=== PATIENT | male | born 1935 | race Caucasian/White ===

== ENCOUNTER → 2020-04-16 | Outpatient (CLI) | payer MEDICARE, OTHER ==
[~2020-04-16] MED LIST: ARIXTRA SQ; ASPIRIN81 M2; COLACE 100 MG100 MG; GLUCOPHAGE1000 MG; HYTRIN10 MG PO; LISINOPRIL-HCT1 EAC2; LISINOPRIL-HCT1 EAC2 PO; LOVASTAT20 PO; METAMUCIL PAC1 UDPK1; MOM; NORVASC10 MG PO; OXYCONTIN10 M1 PO; OXYIR 5 MG CAPSU5 M1 PO; PEPCID COMPLET1 EACH PO; POTASSIUM PO; ZOFRAN4 MG
== END ==
LOC: M.WC 08:47
PROVIDERS: ATTEND Family Medicine
DX: E11.622 Type 2 diabetes mellitus with other skin ulcer (principal); L89.312 Pressure ulcer of right buttock, stage 2; L89.321 Pressure ulcer of left buttock, stage 1; L98.412 Non-pressure chronic ulcer of buttock with fat layer exposed; E11.65 Type 2 diabetes mellitus with hyperglycemia; E11.40 Type 2 diabetes mellitus with diabetic neuropathy, unspecified; L84 Corns and callosities; I10 Essential (primary) hypertension; E78.5 Hyperlipidemia, unspecified; N40.0 Benign prostatic hyperplasia without lower urinary tract symptoms; M48.00 Spinal stenosis, site unspecified; Z87.891 Personal history of nicotine dependence; Z79.84 Long term (current) use of oral hypoglycemic drugs; Z79.82 Long term (current) use of aspirin; Z96.642 Presence of left artificial hip joint

== ENCOUNTER → 2020-04-23 | Outpatient (CLI) | payer MEDICARE, OTHER | LOC: M.WC 09:30 | PROVIDERS: ATTEND Family Medicine | DX: E11.622 Type 2 diabetes mellitus with other skin ulcer (principal); L89.312 Pressure ulcer of right buttock, stage 2; L89.321 Pressure ulcer of left buttock, stage 1; L98.411 Non-pressure chronic ulcer of buttock limited to breakdown of skin; L84 Corns and callosities; E11.40 Type 2 diabetes mellitus with diabetic neuropathy, unspecified; E11.65 Type 2 diabetes mellitus with hyperglycemia; E78.5 Hyperlipidemia, unspecified; I10 Essential (primary) hypertension; M48.00 Spinal stenosis, site unspecified; Z87.891 Personal history of nicotine dependence ==

== ENCOUNTER → 2020-04-30 | Outpatient (CLI) | payer MEDICARE, OTHER | LOC: M.WC 08:34 | PROVIDERS: ATTEND Family Medicine | DX: E11.622 Type 2 diabetes mellitus with other skin ulcer (principal); L89.312 Pressure ulcer of right buttock, stage 2; L89.321 Pressure ulcer of left buttock, stage 1; L98.412 Non-pressure chronic ulcer of buttock with fat layer exposed; E11.40 Type 2 diabetes mellitus with diabetic neuropathy, unspecified; E11.65 Type 2 diabetes mellitus with hyperglycemia; E78.5 Hyperlipidemia, unspecified; I10 Essential (primary) hypertension; M48.00 Spinal stenosis, site unspecified; Z87.891 Personal history of nicotine dependence ==

== ENCOUNTER → 2020-05-14 | Outpatient (CLI) | payer MEDICARE, OTHER | LOC: M.WC 09:51 | PROVIDERS: ATTEND Family Medicine | DX: E11.622 Type 2 diabetes mellitus with other skin ulcer (principal); L89.312 Pressure ulcer of right buttock, stage 2; L89.321 Pressure ulcer of left buttock, stage 1; L98.412 Non-pressure chronic ulcer of buttock with fat layer exposed; L84 Corns and callosities; E11.40 Type 2 diabetes mellitus with diabetic neuropathy, unspecified; E11.65 Type 2 diabetes mellitus with hyperglycemia; E78.5 Hyperlipidemia, unspecified; I10 Essential (primary) hypertension; M48.00 Spinal stenosis, site unspecified; Z87.891 Personal history of nicotine dependence ==

== ENCOUNTER → 2020-05-28 | Outpatient (CLI) | payer MEDICARE, OTHER | LOC: M.WC 09:54 | PROVIDERS: ATTEND Family Medicine | DX: E11.622 Type 2 diabetes mellitus with other skin ulcer (principal); L89.312 Pressure ulcer of right buttock, stage 2; L89.321 Pressure ulcer of left buttock, stage 1; L98.411 Non-pressure chronic ulcer of buttock limited to breakdown of skin; E11.65 Type 2 diabetes mellitus with hyperglycemia; E11.40 Type 2 diabetes mellitus with diabetic neuropathy, unspecified; L84 Corns and callosities; I10 Essential (primary) hypertension; E78.5 Hyperlipidemia, unspecified; N40.0 Benign prostatic hyperplasia without lower urinary tract symptoms; M48.00 Spinal stenosis, site unspecified; Z87.891 Personal history of nicotine dependence; Z79.84 Long term (current) use of oral hypoglycemic drugs; Z79.82 Long term (current) use of aspirin ==

== ENCOUNTER → 2020-06-10 | Outpatient (CLI) | payer MEDICARE, OTHER | LOC: M.WC 10:44 | PROVIDERS: ATTEND Family Medicine | DX: E11.622 Type 2 diabetes mellitus with other skin ulcer (principal); L89.312 Pressure ulcer of right buttock, stage 2; L89.321 Pressure ulcer of left buttock, stage 1; L98.411 Non-pressure chronic ulcer of buttock limited to breakdown of skin; L84 Corns and callosities; E11.65 Type 2 diabetes mellitus with hyperglycemia; E11.40 Type 2 diabetes mellitus with diabetic neuropathy, unspecified; E78.5 Hyperlipidemia, unspecified; I10 Essential (primary) hypertension; N40.0 Benign prostatic hyperplasia without lower urinary tract symptoms; M48.00 Spinal stenosis, site unspecified; Z87.891 Personal history of nicotine dependence; Z79.84 Long term (current) use of oral hypoglycemic drugs; Z79.82 Long term (current) use of aspirin ==

== ENCOUNTER → 2020-07-02 | Outpatient (CLI) | payer MEDICARE, OTHER | LOC: M.WC 09:58 | PROVIDERS: ATTEND Family Medicine | DX: E11.622 Type 2 diabetes mellitus with other skin ulcer (principal); L89.312 Pressure ulcer of right buttock, stage 2; L89.321 Pressure ulcer of left buttock, stage 1; L98.412 Non-pressure chronic ulcer of buttock with fat layer exposed; E11.65 Type 2 diabetes mellitus with hyperglycemia; E11.40 Type 2 diabetes mellitus with diabetic neuropathy, unspecified; L84 Corns and callosities; I10 Essential (primary) hypertension; E78.5 Hyperlipidemia, unspecified; N40.0 Benign prostatic hyperplasia without lower urinary tract symptoms; M48.00 Spinal stenosis, site unspecified; Z87.891 Personal history of nicotine dependence; Z79.82 Long term (current) use of aspirin; Z79.84 Long term (current) use of oral hypoglycemic drugs ==

== ENCOUNTER → 2020-07-16 | Outpatient (CLI) | payer MEDICARE, OTHER | LOC: M.WC 10:45 | PROVIDERS: ATTEND Family Medicine | DX: E11.622 Type 2 diabetes mellitus with other skin ulcer (principal); L89.312 Pressure ulcer of right buttock, stage 2; L89.321 Pressure ulcer of left buttock, stage 1; L98.412 Non-pressure chronic ulcer of buttock with fat layer exposed; L84 Corns and callosities; E11.65 Type 2 diabetes mellitus with hyperglycemia; E11.40 Type 2 diabetes mellitus with diabetic neuropathy, unspecified; E78.5 Hyperlipidemia, unspecified; I10 Essential (primary) hypertension; N40.0 Benign prostatic hyperplasia without lower urinary tract symptoms; M48.00 Spinal stenosis, site unspecified; Z87.891 Personal history of nicotine dependence ==

== ENCOUNTER → 2020-08-13 | Outpatient (CLI) | payer MEDICARE, OTHER | LOC: M.WC 10:51 | PROVIDERS: ATTEND Family Medicine | DX: E11.622 Type 2 diabetes mellitus with other skin ulcer (principal); L89.312 Pressure ulcer of right buttock, stage 2; L89.321 Pressure ulcer of left buttock, stage 1; L98.411 Non-pressure chronic ulcer of buttock limited to breakdown of skin; E11.65 Type 2 diabetes mellitus with hyperglycemia; L84 Corns and callosities; I10 Essential (primary) hypertension; E78.5 Hyperlipidemia, unspecified; E11.40 Type 2 diabetes mellitus with diabetic neuropathy, unspecified; N40.0 Benign prostatic hyperplasia without lower urinary tract symptoms; M48.00 Spinal stenosis, site unspecified; Z87.891 Personal history of nicotine dependence; Z79.82 Long term (current) use of aspirin; Z79.84 Long term (current) use of oral hypoglycemic drugs; Z79.899 Other long term (current) drug therapy ==

== ENCOUNTER → 2020-08-27 | Outpatient (CLI) | payer MEDICARE, OTHER | LOC: M.WC 10:42 | PROVIDERS: ATTEND Family Medicine | DX: E11.622 Type 2 diabetes mellitus with other skin ulcer (principal); L89.312 Pressure ulcer of right buttock, stage 2; L89.321 Pressure ulcer of left buttock, stage 1; L98.411 Non-pressure chronic ulcer of buttock limited to breakdown of skin; E11.65 Type 2 diabetes mellitus with hyperglycemia; E11.40 Type 2 diabetes mellitus with diabetic neuropathy, unspecified; L84 Corns and callosities; I10 Essential (primary) hypertension; E78.5 Hyperlipidemia, unspecified; N40.0 Benign prostatic hyperplasia without lower urinary tract symptoms; M48.00 Spinal stenosis, site unspecified; Z87.891 Personal history of nicotine dependence; Z79.84 Long term (current) use of oral hypoglycemic drugs; Z79.82 Long term (current) use of aspirin; Z79.899 Other long term (current) drug therapy ==

== ENCOUNTER → 2020-09-24 | Outpatient (CLI) | payer MEDICARE, OTHER | LOC: M.WC 10:04 | PROVIDERS: ATTEND Family Medicine | DX: E11.622 Type 2 diabetes mellitus with other skin ulcer (principal); L89.312 Pressure ulcer of right buttock, stage 2; L89.321 Pressure ulcer of left buttock, stage 1; L98.412 Non-pressure chronic ulcer of buttock with fat layer exposed; E11.65 Type 2 diabetes mellitus with hyperglycemia; L84 Corns and callosities; E11.40 Type 2 diabetes mellitus with diabetic neuropathy, unspecified; I10 Essential (primary) hypertension; E78.5 Hyperlipidemia, unspecified; N40.0 Benign prostatic hyperplasia without lower urinary tract symptoms; M48.00 Spinal stenosis, site unspecified; Z87.891 Personal history of nicotine dependence; Z79.84 Long term (current) use of oral hypoglycemic drugs; Z79.82 Long term (current) use of aspirin; Z79.899 Other long term (current) drug therapy ==

== ENCOUNTER → 2020-10-22 | Outpatient (CLI) | payer MEDICARE, OTHER | LOC: M.WC 10:50 | PROVIDERS: ATTEND Family Medicine | DX: E11.622 Type 2 diabetes mellitus with other skin ulcer (principal); L89.312 Pressure ulcer of right buttock, stage 2; L89.322 Pressure ulcer of left buttock, stage 2; L98.412 Non-pressure chronic ulcer of buttock with fat layer exposed; E11.65 Type 2 diabetes mellitus with hyperglycemia; E11.40 Type 2 diabetes mellitus with diabetic neuropathy, unspecified; L84 Corns and callosities; I10 Essential (primary) hypertension; E78.5 Hyperlipidemia, unspecified; N40.0 Benign prostatic hyperplasia without lower urinary tract symptoms; M48.00 Spinal stenosis, site unspecified; Z87.891 Personal history of nicotine dependence; Z79.84 Long term (current) use of oral hypoglycemic drugs; Z79.82 Long term (current) use of aspirin; Z79.899 Other long term (current) drug therapy ==

== ENCOUNTER → 2020-11-19 | Outpatient (CLI) | payer MEDICARE, OTHER | LOC: M.WC 10:26 | PROVIDERS: ATTEND Family Medicine | DX: E11.622 Type 2 diabetes mellitus with other skin ulcer (principal); L89.312 Pressure ulcer of right buttock, stage 2; L89.321 Pressure ulcer of left buttock, stage 1; L98.411 Non-pressure chronic ulcer of buttock limited to breakdown of skin; E11.40 Type 2 diabetes mellitus with diabetic neuropathy, unspecified; I10 Essential (primary) hypertension; E78.5 Hyperlipidemia, unspecified; N40.0 Benign prostatic hyperplasia without lower urinary tract symptoms; M48.00 Spinal stenosis, site unspecified; Z87.891 Personal history of nicotine dependence; Z79.82 Long term (current) use of aspirin; Z79.84 Long term (current) use of oral hypoglycemic drugs; Z79.899 Other long term (current) drug therapy ==